=== PATIENT | female | born 1930 | race Caucasian/White ===

== ENCOUNTER 2018-02-11 17:58 | Emergency (ER) | payer MEDICARE, OTHER ==
[2018-02-11] MEDS ORDERED: Diphtheria,Pertussis(Acell),Tetanus Vaccine 0.5 ML SDV IM ONE (18:24)
[2018-02-11] MEDS ORDERED: Lidocaine 1% 10 ML MDV INJECT ONE (18:24)
--- NOTE | 2018-02-11 18:27 | EDM.PDOC ---
<Misty Morillo - Last Filed: 02/11/18 19:16> ED HPI GENERAL MEDICAL PROBLEM - General Chief Complaint: Laceration Stated Complaint: L INDEX FINGER LAC Time Seen by Provider: 02/11/18 18:26 - Related Data Allergies Allergy/AdvReac Type Severity Reaction Status Date / Time No Known Allergies Allergy Verified 02/11/18 18:07 Home Meds: Home Meds . [Unable to Verify Home Med List] 02/11/18 [History] ED SKIN PROCEDURES - Laceration/Wound Repair Left Lateral Distal Finger Lac/Wound length In cm: 2 (cm) Appearance: Subcutaneous Distal NVT: Neuro & Vascular Intact, No Tendon Injury Anesthetic Type: Local Local Anesthesia - Lidocaine (Xylocaine): 1% Plain Local Anesthetic Volume: 2cc Skin Prep: Saline, Sterile Drape Exploration/Debridement/Repair: Wound Explored, No Foreign Material Found Closed with: Sutures Suture Size: other (5-0) # of Sutures: 6 Suture Type: Simple, Other (vicryl) Sterile Dressing Applied: Nurse Tetanus Status Addressed: Yes Course - Vital Signs Last Recorded V/S: Last Vital Signs Temp 36.4 C 02/11/18 18:05 Pulse 68 02/11/18 18:05 Resp 18 02/11/18 18:05 BP 175/77 H 02/11/18 18:05 Pulse Ox 99 02/11/18 18:05 - Orders/Labs/Meds Orders: Active Orders 24 hr Category Date Time Status Vaccines to be Administered [RC] PER UNIT ROUTINE Care 02/11/18 18:26 Active Meds: Medications Discontinued Medications Generic Name Dose Route Start Last Admin Trade Name Sammie PRN Reason Stop Dose Admin Diphtheria/Tetanus/Acell Pertussis 0.5 ml 02/11/18 18:24 02/11/18 18:54 Adacel IM 02/11/18 18:25 0.5 ml .ONCE ONE Administration Lidocaine HCl 10 ml 02/11/18 18:24 02/11/18 18:54 Xylocaine 1% INJECT 02/11/18 18:25 10 ml ONETIME ONE Administration Departure - Departure Disposition: Home, Self-Care 01 Clinical Impression: Laceration - Discharge Information Instructions: Laceration Care, Adult Referrals: Debi Bardales PA-C [Primary Care Provider] - Forms: ED Department Discharge Additional Instructions: Wash the wound gentle soap and water twice a day. Antibacterial ointment such as Neosporin or bacitracin to the wound twice a day for 3 days. Keep the wound covered when it may become dirty, otherwise leave open to air as much as possible. [id number] Tylenol or Motrin as needed for pain relief. Have the sutures removed in 10 days. The [facility] clinic located on the side of the hospital is open 8 AM to 5 PM Saturday through Saturday and will remove the sutures for free. Call [phone] to schedule the provider there. Please return to the ER for symptoms change or worsen. - My Orders Last 24 Hours: My Active Orders 02/11/18 18:26 Vaccines to be Administered [RC] PER UNIT ROUTINE - Assessment/Plan Last 24 Hours: My Active Orders 02/11/18 18:26 Vaccines to be Administered [RC] PER UNIT ROUTINE <Ailyn Augustin - Last Filed: 02/11/18 22:49> ED HPI GENERAL MEDICAL PROBLEM - General Source of Information: Reports: Patient History Limitations: Reports: No Limitations - History of Present Illness INITIAL COMMENTS - FREE TEXT/NARRATIVE: 87-year-old female presents for evaluation and treatment of a laceration to the left second finger. Reportedly the patient was cutting some potatoes when the knife slipped cutting her left hand second finger. Patient denies any numbness or tingling. The wound is currently still oozing. She takes days daily aspirin. Last tetanus was probably 15 years ago. Patient is right handed. Social & Family History - Tobacco Use Smoking Status *Q: Never Smoker - Caffeine Use Caffeine Use: Reports: Coffee - Recreational Drug Use Recreational Drug Use: No ED ROS GENERAL - Review of Systems Review Of Systems: See Below Skin: Reports: Wound (left hand 2nd finger) Neurological: Denies: Numbness, Tingling ED EXAM, SKIN/RASH Exam: See Below Exam Limited By: No Limitations General Appearance: Alert, WD/WN, No Apparent Distress Respiratory/Chest: No Respiratory Distress Cardiovascular: Normal Peripheral Pulses, Regular Rate, Rhythm Peripheral Pulses: 2+: Radial (L) Extremities: Normal Range of Motion, Normal Capillary Refill Neurological: Alert, Oriented, Normal Cognition Psychiatric: Normal Affect, Normal Mood Skin: Warm, Dry, Wound/Incision (1.5cm in length flap like laceration to the left hand 2nd finger radial side, flap is dusky in appearance, actively oozing) Location, Skin: Upper Extremity, Left ED SKIN PROCEDURES - Laceration/Wound Repair Left Lateral Distal Finger Complications: No Course - Orders/Labs/Meds Meds: Medications Discontinued Medications Generic Name Dose Route Start Last Admin Trade Name Freq PRN Reason Stop Dose Admin Diphtheria/Tetanus/Acell Pertussis 0.5 ml 02/11/18 18:24 02/11/18 18:54 Adacel IM 02/11/18 18:25 0.5 ml .ONCE ONE Administration Lidocaine HCl 10 ml 02/11/18 18:24 02/11/18 18:54 Xylocaine 1% INJECT 02/11/18 18:25 10 ml ONETIME ONE Administration - Re-Assessments/Exams Free Text/Narrative Re-Assessment/Exam: 02/11/18 19:08 6 sutures placed by Misty MOON. Tetanus is updated. Discharge instructions as documented Departure - Departure Time of Disposition: 19:08 Condition: Good
== END 2018-02-11 19:29 | disposition home or self-care (01) ==
LOC: JD.ED 17:58
DX: S61.211A Laceration without foreign body of left index finger without damage to nail, initial encounter (principal); Z23 Encounter for immunization; Z79.82 Long term (current) use of aspirin; W26.0XXA Contact with knife, initial encounter
CPT/HCPCS: 12001; 90471; 90715; 99282-25; 99283-25